=== PATIENT | male | born 1935 | race Asian ===

== ENCOUNTER 2017-09-27 11:39 | Inpatient (IN) | payer MEDICARE ==
[~2017-09-27] VITALS: Ht 160 cm; Wt 54.4 kg
[2017-09-27 11:45] VITALS: BP 106/56
--- NOTE | 2017-09-27 12:02 | Emergency Room Report ---
History of Present Illness General Chief Complaint: Syncope Source: Patient Present Illness HPI 82-year-old male with pmhx of retention, CAD p/w pre-syncopal episode. Syncopal episode occurred while he was pulling santiago at of the [facility], states that he felt suddenly very dizzy, felt both of his legs give out, fell back however did not hit the floor as bystanders caught him. Denies any LOC Pt states feeling lightheadedness/nauseous before event. Denies sob, palpitations, or chest pain before event. There was no seizure like activity, tongue biting, urinary incontinence, blurry vision, or GALAVIZ. Patient states that he did not eat his breakfast Denies recent fever, chills, n/v/d. Patient states that he had an angiogram done at [facility] about 5 months ago, states that there was no stent that was placed in his heart, but does not know full results Allergies: Coded Allergies: No Known Allergies (Unverified , 09/27/17) Patient History Past Medical History: see triage record Past Surgical History: none Pertinent Family History: none Reviewed Nursing Documentation: PMH: Agreed, PSxH: Agreed Nursing Documentation-PMH Hx Hypertension: Yes Hx Cerebrovascular Accident: Yes Review of Systems All Other Systems: negative except mentioned in HPI Physical Exam Vital Signs Date Time Temp Pulse Resp B/P (MAP) Pulse Ox O2 Delivery O2 Flow Rate FiO2 09/27/17 11:36 98.2 65 16 77/60 98 Room Air Sp02 EP Interpretation: reviewed, normal General Appearance: normal inspection, well appearing, no apparent distress, alert, GCS 15, non-toxic Head: normocephalic, atraumatic Eyes: bilateral eye normal inspection, bilateral eye PERRL, bilateral eye EOMI ENT: normal ENT inspection, normal pharynx, normal voice, moist mucus membranes Neck: normal inspection, full range of motion, supple Respiratory: normal inspection, lungs clear, normal breath sounds, no respiratory distress, no retraction, no wheezing, speaking full sentences, chest symmetrical Cardiovascular #1: normal inspection, regular rate, rhythm, no edema, normal capillary refill Cardiovascular #2: 2+ radial (R), 2+ radial (L) Gastrointestinal: normal inspection, non tender, soft, non-distended, no guarding Musculoskeletal: normal inspection, back normal, normal range of motion, non- tender Neurologic: normal inspection, alert, oriented x3, responsive, social media senior associate III-XII nml as tested, motor strength/tone normal, sensory intact, normal gait, speech normal Psychiatric: normal inspection, judgement/insight normal, memory normal Skin: normal inspection, normal color, no rash, warm/dry, well hydrated, normal turgor Medical Decision Making Diagnostic Impression: Primary Impression: Pre-syncope Additional Impressions: Mild renal insufficiency Hematuria ER Course 82-year-old male with pre-syncopal episode DDX Vasovagal vs. orthostatic / hypovolemic/dehydration vs. cardiac arrhythmia (SVT , Afib) vs. cardiac (, ACS) vs. PE vs. metabolic (hypoglycemia, hypoxia), vs neuro (seizure, CVA, intracranial bleed) Plan: bgm, cbc, bmp, ekg, cxr consider IVF I WILL HOLD CT HEAD FOR NOW, PATIENT DID NOT HAVE A FULL SYNCOPAL EPISODES, THERE ARE NO NEUROLOGICAL SIGNS OR SYMPTOMS, AND THERE IS NO HISTORY OF HEAD TRAUMA ER course: Patient has remained stable during ED stay. No further syncopal episodes Patient states that he feels much better and does not want to stay in the emergency room, however she lives alone, no one to take care of him. Patient was convinced to stay to be admitted to the hospital Noted to have hematuria on labs, and mild renal insufficiency, patient states that he does not know why, denies any hematuria. Denies any flank pain on CXR patient with slight widened mediastinum, patient is denying and cp or SOB , and is not diaphoretic VSS, joking/laughing during conversation, NAD Disposition: Patient requires admission to telemetry. Patient requires further workup of syncopal episode, further lab testing, serial troponins, cardiac monitoring D/W hospitalist Dr Turner who has accepted patient for admission Please note that this Emergency Department Report was dictated using [employer] analyst technology software, occasionally this can lead to erroneous entry secondary to interpretation by the dictation equipment EKG Diagnostic Results EP Interpretation: Yes Rate: normal Rhythm: NSR ST Segments: No acute changes, no WPW, Brugada, QT prolongation ASA given to patient: No Rhythm Strip EP Interpretation: Yes Rate: 68 Rhythm: NSR, no PVCs, no ectopy Chest X-ray CXR: Ordered: Yes 1 view Indication: Syncope EP interpretation: Yes Interpretation: ?slight wide mediastinum Impression: ?slight wide mediastinum Electronically signed by Ramakrishna Leroy MD Laboratory Tests Test 09/27/17 12:05 09/27/17 12:10 White Blood Count 5.7 K/UL (4.8-10.8) Red Blood Count 5.24 M/UL (4.70-6.10) Hemoglobin 15.7 G/DL (14.2-18.0) Hematocrit 48.1 % (42.0-52.0) Mean Corpuscular Volume 92 FL (80-99) Mean Corpuscular Hemoglobin 30.1 PG (27.0-31.0) Mean Corpuscular Hemoglobin Concent 32.7 G/DL (32.0-36.0) Red Cell Distribution Width 11.7 % (11.6-14.8) Platelet Count 182 K/UL (150-450) Mean Platelet Volume 7.3 FL (6.5-10.1) Neutrophils (%) (Auto) 68.5 % (45.0-75.0) Lymphocytes (%) (Auto) 20.2 % (20.0-45.0) Monocytes (%) (Auto) 8.0 % (1.0-10.0) Eosinophils (%) (Auto) 2.0 % (0.0-3.0) Basophils (%) (Auto) 1.3 % (0.0-2.0) Sodium Level 138 MMOL/L (136-145) Potassium Level 4.3 MMOL/L (3.5-5.1) Chloride Level 103 MMOL/L (98-107) Carbon Dioxide Level 27 MMOL/L (21-32) Anion Gap 8 mmol/L (5-15) Blood Urea Nitrogen 24 mg/dL (7-18) H Creatinine 1.7 MG/DL (0.55-1.30) H Estimate Glomerular Filtration Rate mL/min (>60) Glucose Level 110 MG/DL (74-106) H Calcium Level 9.1 MG/DL (8.5-10.1) Total Bilirubin 0.9 MG/DL (0.2-1.0) Aspartate Amino Transferase (AST) 18 U/L (15-37) Alanine Aminotransferase (ALT) 19 U/L (12-78) Alkaline Phosphatase 106 U/L (46-116) Troponin I Pending Pro-B-Type Natriuretic Peptide 1860 pg/mL (0-125) H Total Protein 6.5 G/DL (6.4-8.2) Albumin 3.5 G/DL (3.4-5.0) Globulin 3.0 g/dL Albumin/Globulin Ratio 1.2 (1.0-2.7) Urine Color Yellow Urine Appearance Slightly cloudy Urine pH 6 (4.5-8.0) Urine Specific [place] 1.025 (1.005-1.035) Urine Protein Negative (NEGATIVE) Urine Glucose (UA) Negative (NEGATIVE) Urine Ketones Negative (NEGATIVE) Urine Occult Blood 5+ (NEGATIVE) H Urine Nitrite Negative (NEGATIVE) Urine Bilirubin 1+ (NEGATIVE) H Urine Ictotest Negative Urine Urobilinogen Normal MG/DL (0.0-1.0) Urine Leukocyte Esterase Negative (NEGATIVE) Urine RBC 60-80 /HPF (0 - 0) H Urine WBC 0-2 /HPF (0 - 0) Urine Squamous Epithelial Cells Occasional /LPF Urine Bacteria None /HPF (NONE) Last Vital Signs Date Time Temp Pulse Resp B/P (MAP) Pulse Ox O2 Delivery O2 Flow Rate FiO2 09/27/17 11:45 60 16 106/56 94 Room Air 09/27/17 11:36 98.2 Disposition: ADMITTED INPATIENT Condition: Serious Scripts Unable to Obtain Active Prescriptions or Reported Meds Ramakrishna Leroy M.D. Sep 27, 2017 12:02
[2017-09-27 12:30] VITALS: BP 109/48
[2017-09-27 12:55] LABS: ANION GAP 8 mmol/L (5-15); CALCIUM 9.1 MG/DL (8.5-10.1); CARBON DIOXIDE 27 MMOL/L (21-32); CHLORIDE 103 MMOL/L (98-107); CREATININE 1.7 MG/DL (0.55-1.30); POTASSIUM 4.3 MMOL/L (3.5-5.1); SODIUM 138 MMOL/L (136-145)
[2017-09-27 12:57] LABS: BASOPHILS % (AUTO) 1.3 % (0.0-2.0); LYMPHOCYTES % (AUTO) 20.2 % (20.0-45.0); MEAN CORPUSCULAR HEMOGLOBIN 30.1 PG (27.0-31.0); MEAN CORPUSCULAR HGB CONC 32.7 G/DL (32.0-36.0); MEAN CORPUSCULAR VOLUME 92 FL (80-99); MEAN PLATELET VOLUME 7.3 FL (6.5-10.1); NEUTROPHILS % (AUTO) 68.5 % (45.0-75.0); PLATELET COUNT 182 K/UL (150-450); RED BLOOD COUNT 5.24 M/UL (4.70-6.10); RED CELL DISTRIBUTION WIDTH 11.7 % (11.6-14.8); WHITE BLOOD COUNT 5.7 K/UL (4.8-10.8)
[2017-09-27 13:03] LABS: APPEARANCE,URINE SLIGHTLY CLOUDY; KETONES,URINE NEGATIVE (NEGATIVE); LEUKOCYTE ESTERASE ,URINE NEGATIVE (NEGATIVE); NITRITE,URINE NEGATIVE (NEGATIVE); PH,URINE 6 (4.5-8.0); PROTEIN,URINE NEGATIVE (NEGATIVE); UROBILINOGEN,URINE NORMAL MG/DL (0.0-1.0)
[2017-09-27 13:06] LABS: ALANINE AMINOTRANSFERASE 19 U/L (12-78); ALBUMIN/GLOBULIN RATIO 1.2 (1.0-2.7); ASPARTATE AMINO TRANSFERASE 18 U/L (15-37); TOTAL PROTEIN 6.5 G/DL (6.4-8.2)
[2017-09-27 13:12] LABS: RBC,URINE 60-80 /HPF (0 - 0); SQUAMOUS EPITHELIAL CELL,UR OCCASIONAL /LPF (NONE/OCC); WBC,URINE 0-2 /HPF (0 - 0)
[2017-09-27 13:13] LABS: ICTOTEST NEGATIVE
[2017-09-27 15:22] VITALS: BP 124/59
[2017-09-27 16:45] VITALS: BP 126/55
[2017-09-27] MEDS ORDERED: ZOLPIDEM TARTRAT5 MG (17:14)
[2017-09-27] MEDS ORDERED: GABAPENTIN300 MG (17:14)
[2017-09-27] MEDS ORDERED: ATORVASTATIN CA80 MG (17:14)
[2017-09-27] MEDS ORDERED: CLOPIDOGREL75 MG (17:14)
[2017-09-27] MEDS ORDERED: CLEOCIN150 MG (17:14)
[2017-09-27] MEDS ORDERED: ISOSORBIDE MONO30 M1 (17:14)
[2017-09-27] MEDS ORDERED: CARVEDILOL6.25 MG (17:14)
[2017-09-27] MEDS ORDERED: LOSARTAN POTASS50 MG (17:14)
[2017-09-27] MEDS ORDERED: AMLODIPINE BESYL5 MG (17:14)
[2017-09-27] MEDS ORDERED: ASPIRIN EC81 MG (17:14)
[2017-09-27 17:17] VITALS: BP 132/74
[2017-09-27] MEDS ORDERED: Zolpidem 5mg tab ORAL PRN ×2 (19:00→19:45)
--- NOTE | 2017-09-27 19:30 | History & Physical ---
History and Physical History & Physicial HP dictated #[id number] JOSIANE DAVIDSON Sep 27, 2017 19:30
[2017-09-27] MEDS ORDERED: Milk of Magnesia 30ml Ud ORAL PRN (19:45)
[2017-09-27] MEDS: Carvedilol 6.25mg Tab ORAL SCH (20:41)
[2017-09-27] MEDS: Heparin 5000 units/ml inj SUBQ SCH (20:48)
[2017-09-27] MEDS ORDERED: Atorvastatin 80mg tab ORAL SCH (21:00)
--- NOTE | 2017-09-27 21:00 | History and Physical Report ---
DATE OF ADMISSION: 09/27/2017 CHIEF COMPLAINT: The patient had an episode when his legs gave up in the bank. HISTORY OF PRESENT ILLNESS: This is an 82-year-old male who was in the front of the [employer] machine today. ER reported that he had a syncopal episode, however the patient states that he did not pass out. There is a note from the ER that the patient was dizzy. At this time, he is denying it, however he does say that he has had weakness in both of his legs and went down. The patient states that a few months ago, he had a similar episode in the doctor's office. The patient came to the emergency room and was admitted. PAST MEDICAL HISTORY: The patient has a history of heart disease. It is unclear, if he had coronary angiogram stenting, but he was in [facility] for chest pain. He has a history of hypertension and denies history of diabetes. There is a report of CVA. ALLERGIES: No known drug allergies. SOCIAL HISTORY: The patient smokes half a pack a day for many years. He lives by himself. No history of alcohol abuse. REVIEW OF SYSTEMS: Noncontributory. PHYSICAL EXAMINATION: GENERAL: The patient is an elderly male, in no acute distress. VITAL SIGNS: Blood pressure was recorded at 77/60 in the emergency room. Currently, the blood pressure is 132/74, pulse 69, temperature 97, and respiratory rate of 18. HEENT: [place] conjunctivae. Anicteric sclerae. NECK: Supple. LUNGS: Clear to auscultation. HEART: S1 and S2 without murmurs or rubs. ABDOMEN: Soft and nontender. EXTREMITIES: No cyanosis or edema. LABORATORY FINDINGS: CBC shows a white blood cell count of 5.7, hematocrit 48.1, hemoglobin 15.1, and platelets 182,000. Chemistry panel shows a serum sodium 138, potassium 4.3, chloride 103, CO2 27, BUN 24, creatinine 1.7, and blood sugar 110. Calcium is 9.1. Troponin, which was checked in the emergency room, was 0.01. The patient had a UA showing 60 to 80 red cells per high power field and 0-2 WBCs, and no protein. ASSESSMENT: This is an 82-year-old male, who has a questionable syncopal episode today but definitely went down on his legs feeling weak. He had a report of low blood pressure in the emergency room, so he may have hypotensive episode where he became weak and went down. Also, he has renal failure with unknown baseline and prerenal azotemia. He may have chronic kidney disease but since his hematocrit is on the high side, it is more likely that he had some volume depletion. Other abnormalities, he has hematuria and he has a history of smoking, so underlying urogenital malignancy needs to be ruled out. PLAN: At this time, I will keep the patient in the telemetry. Troponins will be done to rule out ME. An echocardiogram will be done to assess LV function. The patient will be hydrated with IV fluids. Blood pressure will be followed closely and adjustment will be made in the patient's blood pressure medication. The patient will have renal ultrasound to make sure that he does not have any mass accounting for his malignancy. Also Urology consultation may be needed to do a cystoscopy, although, this can be done as an outpatient. Luca Turner M.D. DR: Mercedez JOB#: [id number] CC: RILEY
[2017-09-28 00:43] VITALS: BP 126/60
[2017-09-28 04:07] VITALS: BP 166/68
[2017-09-28 07:51] LABS: HEMOGLOBIN A1C 5.3 % (4.3-6.0)
[2017-09-28 08:00] VITALS: BP 143/70
[2017-09-28 08:12] LABS: CHOLESTEROL 132 MG/DL (< 200); CHOLESTEROL/HDL RATIO 2.2 (3.3-4.4)
[2017-09-28 08:31] VITALS: BP 143/70
[2017-09-28] MEDS: Carvedilol 6.25mg Tab ORAL SCH (08:31)
[2017-09-28] MEDS: Heparin 5000 units/ml inj SUBQ SCH (08:32)
--- NOTE | 2017-09-28 08:42 | Diagnostic Imaging Report ---
Clinical history: Cough Technique: Portable AP chest radiograph was obtained. Comparison: None Findings: No focal consolidation to suggest pneumonia is identified. Minimal scattered linear densities suggest changes of chronic lung disease. There is no pleural effusion or pneumothorax. The heart is not enlarged. The right mediastinal silhouette appears prominent suggesting dilated or aneurysmal ascending thoracic aorta. Atherosclerotic calcification of the thoracic aorta is seen. The bony thorax is unremarkable. Impression: 1. No evidence of pneumonia or pulmonary edema. 2. Prominent right mediastinal silhouette suggesting aneurysmal or dilated ascending thoracic aorta. Correlate with prior imaging or consider chest CT, as clinically warranted.
[2017-09-28] MEDS ORDERED: Aspirin EC 81mg tab ORAL SCH (09:00)
[2017-09-28] MEDS ORDERED: Losartan 50mg tab ORAL SCH (09:00)
[2017-09-28] MEDS ORDERED: Imdur 30mg tab ORAL SCH (09:00)
--- NOTE | 2017-09-29 07:56 | Discharge Summary ---
Discharge Summary Hospital Course Date of Admission Sep 27, 2017 at 16:13 Date of Discharge Sep 28, 2017 at 11:28 Admitting Diagnosis syncope HPI Ramon Scott is a 82 year old male who was admitted on Sep 27, 2017 at 16:13 for Syncope Hospital Course dc summary #[id number] Discharge Discharge Disposition Patient signed AMA Discharge Diagnoses: Discharge Instructions Discharge Instructions Special Instructions I have been assigned to complete a D/C Summary on this account. I was not involved in the patient management Florence Galeano NP (Vanchtein) Sep 29, 2017 07:56
--- NOTE | 2017-09-29 16:15 | Discharge Summary 2 SIG ---
DATE OF ADMISSION: 09/27/2017 DATE OF DISCHARGE: 09/28/2017 REASON FOR ADMISSION: 82-year-old male with past medical history of hypertension, CVA, BPH presented to emergency department after presyncopal episode. It happened while he was pulling santiago from the [employer] machine. He denied loss of consciousness but he felt lightheadedness and nauseous before the event. He denied shortness of breath, palpitation, chest pain. There was no seizure-like activity. No headache. No blurry vision. No urinary incontinence. No fever. No chills. No nausea. No vomiting. The patient stated that he had angiogram done at [facility] about 5 months ago. No stent was placed in his heart but he was not aware of the results. Workup in the emergency department revealed hypotension , otherwise vital signs were stable. Laboratory workup revealed evidence of acute renal failure. Urinalysis revealed hematuria, but no evidence of infection. The patient with history of smoking half pack a day for many years. CT of the head not done since the patient did not have any full syncopal episode and there was no focal neurological signs or symptoms, no head trauma to suggest urgent necessity of CT of the head. Chest x-ray revealed no evidence of pneumonia or pulmonary edema. Findings demonstrated prominent right mediastinal fluid suggesting aneurysmal or dilating ascending thoracic aorta. The patient was admitted for further management for presyncope, hypotension, hematuria, renal failure acute versus chronic, history of smoking. HOSPITAL STAY: The patient was admitted to telemetry floor. Serial troponin were ordered. Serial troponin x2 negative. EKG revealed sinus rhythm. No evidence of arrhythmia. No acute ischemic changes. Echocardiogram was ordered to assess cardiac function. The patient was hydrated with IV fluids. Urology consult was requested. Renal ultrasound was ordered to rule out urogenital malignancy in lieu of hematuria and history of smoking. Blood pressure was closely monitored. Chest CT was considered due to the findings on the chest x-ray. However in the morning of the 09/28/2017 the patient decided to sign against medical advice. All hypertensive medications were on hold during admission. Blood pressure prior to discharge -143/70. The risks and consequences of signing against medical advice were discussed with the patient. The patient verbalized understanding, but refused to stay. The patient signed against medical advice form and left. FINAL DIAGNOSES: 1. Presyncopal episode. 2. Hypotension. 3. Hematuria, rule out urogenital malignancy. 4. Current smoker. 5. Possible aneurysmal or dilated ascending thoracic aorta. Luca Turner M.D. I have been assigned to dictate discharge summary on this account and I was not involved in the patient's management. Florence Farmercr[facility]fernanda N.PSadia DR: Vee JOB#: [id number] CC: RILEY
--- NOTE | 2017-09-30 14:44 | Cardiology Report ---
APPROVED REPORT EKG Measurement Heart [id number] Normal sinus rhythm Normal ECG
== END 2017-09-28 11:28 | disposition left against medical advice (07) | DRG 316 ==
LOC: EDBD 11:39 → EMR 11:45 → EDBEDREQ 13:26 → 2E 16:13
DX: I95.9 Hypotension, unspecified (principal); I71.2 Thoracic aortic aneurysm, without rupture; R31.9 Hematuria, unspecified; R55 Syncope and collapse; I10 Essential (primary) hypertension; F17.200 Nicotine dependence, unspecified, uncomplicated; Z86.73 Personal history of transient ischemic attack (TIA), and cerebral infarction without residual deficits
CPT/HCPCS: 36415; 71010; 80053; 80061; 81003; 82570; 83036; 83880; 84484; 85025; 93005; 99285